=== PATIENT | female | born 2005 ===

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

== ENCOUNTER 2025-03-10 12:28 | Outpatient (CLI) | payer OTHER, SELFPAY | END 2025-03-10 12:29 | disposition home or self-care (01) | PROVIDERS: PCP Nurse Practitioner; Visit Provider Nurse Practitioner | DX: O20.9 Hemorrhage in early pregnancy, unspecified (principal) | CPT/HCPCS: 84702 ==

== ENCOUNTER 2025-03-30 23:07 | Outpatient (CLI) | payer OTHER, SELFPAY | END 2025-03-30 23:08 | disposition home or self-care (01) | PROVIDERS: PCP Nurse Practitioner; Visit Provider Nurse Practitioner | DX: O20.9 Hemorrhage in early pregnancy, unspecified (principal) | CPT/HCPCS: 84702 ==